=== PATIENT | female | born 1935 | race African-American/Black ===

== ENCOUNTER 2021-03-25 12:43 | Emergency (ER) | payer OTHER ==
[~2021-03-25] VITALS: Ht 167.6 cm; Wt 90.0 kg
[2021-03-25 12:45] VITALS: BP 138/76
== END 2021-03-25 13:40 | disposition left against medical advice (07) ==
LOC: ER 12:43
DX: R42 Dizziness and giddiness (principal); I10 Essential (primary) hypertension; E11.9 Type 2 diabetes mellitus without complications; Z79.84 Long term (current) use of oral hypoglycemic drugs; Z71.89 Other specified counseling
CPT/HCPCS: 93005; 99283